=== PATIENT | male | born 1955 | race American Indian/Alaskan Native ===

== ENCOUNTER 2021-11-28 10:34 | Outpatient (CLI) | payer BC ==
--- NOTE | 2021-11-28 11:15 | Cat Scan Report ---
CT ABDOMEN AND PELVIS WITHOUT CONTRAST HISTORY: C61 COMPARISON: None TECHNIQUE: Routine abdominal and pelvic CT exam performed without contrast. Lack of intravenous cont rast limits evaluation of the vascular and solid organs.. All CT scans at this location are performed using CT dose reduction for ALARA by means of automated exposure control. FINDINGS: CT ABDOMEN: Lung Bases: No significant abnormality. Liver: No significant abnormality. Biliary: No significant abnormality. Spleen: No significant abnormality. Unenlarged. Pancreas: No significant abnormality. Adrenals: 1 cm left adrenal adenoma. Kidneys: No significant abnormality. Lymphatics: No lymphadenopathy. Vasculature: Atherosclerotic but nonaneurysmal abdominal aorta. Bowel/Peritoneum: No significant abnormality. No free air. No free fluid. CT PELVIC: : Radiation seeds in the prostate bed. Lymphatics: No lymphadenopathy. Osseous Structures: No aggressive appearing osseous lesions. Additional Findings: None IMPRESSION: 1. No metastatic disease identified in the abdomen or pelvis. Signer Name: Benton Donnelly MD Signed: 11/28/2021 11:10 AM Workstation Name: [id number]
== END 2021-11-28 10:35 | disposition home or self-care (01) ==
LOC: CT 10:34
PROVIDERS: ATTEND Urology
DX: C61 Malignant neoplasm of prostate (principal); I70.0 Atherosclerosis of aorta; D35.02 Benign neoplasm of left adrenal gland
CPT/HCPCS: 74176